=== PATIENT | male | born 1995 | race Two or more races ===

== ENCOUNTER 2019-10-30 20:27 | Emergency (ER) | payer OTHER ==
--- NOTE | 2019-10-30 20:57 | ER Document Report ---
HPI - HPI Patient complains to provider of: Rash to groin Time Seen by Provider: 10/30/19 20:53 Onset/Duration: Waxing and waning Context: This is a 24-year-old male who states that he was tested for herpes and was told that he had it when he was 17 although they stated that the testing was positive but they told him that he assuredly had it. Did have a lesion to the base of his penis it was not weeping it was not red it was a little red it was little excoriated he is deeply concerned that it might be syphilis he wants to be placed on occasion for such. Told him that if it was resolved with medication in the past would be more than happy to provide that with him but it did not look like herpes to me and that she should go to the health department to get complete testing. Associated Symptoms: None Exacerbated by: Denies Relieved by: Denies Past Medical History - General Information source: Patient - Social History Smoking Status: Never Smoker Cigarette use (# per day): No Chew tobacco use (# tins/day): No Smoking Education Provided: No Frequency of alcohol use: None Drug Abuse: None Family History: None Vertical Provider Document - CONSTITUTIONAL Agree With Documented VS: Yes - HEENT HEENT: Atraumatic, Conjuctival Injection, Normocephalic, PERRLA - NECK Neck: Normal Inspection - RESPIRATORY Respiratory: Breath Sounds Normal - CARDIOVASCULAR Cardiovascular: Regular Rate, Regular Rhythm - GI/ABDOMEN Gastrointestinal: Abdomen Soft, Abdomen Non-Tender - REPRODUCTIVE Male Genitalia: Normal Inspection - Red tender area no moist ulceration or lesion to the affected area. Discharge - Discharge Clinical Impression: STD (male) Disposition: HOME, SELF-CARE Instructions: Genital Herpes ([facility]) Additional Instructions: Must follow-up with health department for complete STD testing. Prescriptions: Acyclovir [Zovirax 800 mg Tablet] 800 mg PO 5XD #50 tab
[2019-10-30 21:04] VITALS: BP 139/79
== END 2019-10-30 21:03 | disposition home or self-care (01) ==
LOC: ER 20:27
DX: A60.9 Anogenital herpesviral infection, unspecified (principal); R21 Rash and other nonspecific skin eruption
CPT/HCPCS: 99283